=== PATIENT | female | born 2000 | race Hispanic/Latino ===

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

== ENCOUNTER 2018-01-18 13:23 | Emergency (ER) | payer OTHER, SELFPAY | END 2018-01-18 13:56 | disposition home or self-care (01) | LOC: ERS 13:23 | DX: S00.03XA Contusion of scalp, initial encounter (principal); W22.8XXA Striking against or struck by other objects, initial encounter | CPT/HCPCS: 99283 ==

== ENCOUNTER 2018-01-30 15:13 | Emergency (ER) | payer SELFPAY | END 2018-01-30 16:05 | disposition home or self-care (01) | LOC: ERS 15:13 | DX: B86 Scabies (principal) | CPT/HCPCS: 99282 ==

== ENCOUNTER 2019-09-27 17:20 | Emergency (ER) | payer OTHER, SELFPAY ==
[2019-09-28 16:51] LABS: SARS-CoV-2 MS2 Positive; SARS-CoV-2 N Gene Negative; SARS-CoV-2 S Gene Negative; SARS-CoV-2 orf1ab Negative
== END 2019-09-27 18:08 | disposition home or self-care (01) ==
LOC: ERS 17:20
DX: R05 Cough (principal); Z20.828 Contact with and (suspected) exposure to other viral communicable diseases
CPT/HCPCS: 87635; 99283; U0003

== ENCOUNTER 2019-12-26 18:22 | Day surgery (SDC) | payer OTHER, SELFPAY ==
[2019-12-26 19:01] VITALS: BMI 22.6
[2019-12-26] MEDS ORDERED: hydrALAZINE 20 MG/ML VIAL SLOW IVP PRN (19:58)
--- NOTE | 2019-12-26 20:01 | PDOC.BPN ---
- Brief Progress Note Patient seen at bedside. Workup ordered. See dictation
--- NOTE | 2019-12-26 20:38 | HP ---
TIME OF EVALUATION: 1950 hours. LOCATION: Labor and Delivery Triage B. HISTORY OF PRESENT ILLNESS: This is a patient who has not yet established care at any location and she is here for right upper quadrant discomfort, which she says is mild. In brief, the patient does not know her last menstrual period and again, she has not established care anywhere yet. She is a 19-year-old, G4, P3 with a history of three previous vaginal deliveries. She denies contractions, vaginal bleeding, or leakage of fluid. She does have good movement. REVIEW OF SYSTEMS: Complete review of systems was checked and is otherwise negative unless specified in the HPI. PAST MEDICAL HISTORY: Negative. PAST SURGICAL HISTORY: None. ALLERGIES: NONE. OB HISTORY: She has had vaginal deliveries x3. SOCIAL HISTORY: She denies alcohol, drugs, or smoking. PHYSICAL EXAMINATION: VITAL SIGNS: Stable and she is afebrile. GENERAL: Clinically, she is in no acute distress. ABDOMEN: Soft and nontender. There is no evidence of vaginal bleeding or gross leakage of fluid. On external monitor, heart tones are in the 140s to 150s and they are reactive. There are no contractions on the tocodynamometer. ASSESSMENT: This is a 19-year-old, G4, P3 with unsure last menstrual period, who is here for possible enrolment to care. She is not acute and her symptoms do not appear to be colicky, but nonetheless, I will order a right upper quadrant ultrasound. PLAN: 1. Right upper quadrant ultrasound. 2. OB complete ultrasound. 3. I have ordered all OB labs to be complete. Job ID: [id number]
[2019-12-26 20:44] LABS: #Eosinphils 0.1 thou/uL (0.0-0.7); #Lymphocytes 2.1 thou/uL (1.20-3.40); #Neutrophils 7.7 thou/uL (1.40-6.50); %Basophils 0.4 % (0.0-1.0); %Eosinophils 0.6 % (0.0-10.0); %Lymphocytes 19.2 % (21.0-51.0); %Monocytes 9.1 % (0.0-10.0); %Neutrophils 70.6 % (42.0-75.0); Hemoglobin 8.7 g/dL (12.0-16.0); Mean Corpuscular HGB CONC 31.9 g/dL (32.0-36.0); Mean Corpuscular Hemoglobin 22.9 pg (27.0-31.0); Mean Corpuscular Volume 71.9 fL (78.0-98.0); Mean Platelet Volume 9.6 fL (7.4-10.4); Platelet Count 264 thou/uL (130-400); RBC Distribution Width 15.4 % (11.5-14.5); White Blood Cell (WBC) Count 10.9 thou/uL (4.8-10.8)
[2019-12-26 20:44] LABS: Bacteria/HPF 3+ HPF (None Seen); Bilirubin Negative (Negative); Blood, Urine Trace (Negative); Clarity Turbid (Clear); Glucose, Urine (Dipstick) Normal (Negative); Ketone, Urine 40 mg/dL (Negative); Leukocyte 500 Leu/uL (Negative); Nitrite Negative (Negative); Protein, Urine (Dipstick) 10 mg/dL (Neg-Trace); Specific Gravity, Urine 1.013 (1.002-1.036); Squamous Epithelial 21-50 HPF (0-3); Urobilinogen Normal mg/dL (Less than 2); WBC/HPF Greater than 50 HPF (0-3)
[2019-12-26 21:04] LABS: ALT (SGPT) 8 U/L (8-55); AST (SGOT) 10 U/L (5-34); Albumin 3.2 g/dL (3.5-5.0); Alkaline Phosphatase 214 U/L (40-110); Anion Gap 11 mmol/L (10-20); BUN (Urea Nitrogen) 7 mg/dL (7.0-18.7); Bilirubin, Total 0.3 mg/dL (0.2-1.2); Calc. Creatinine Clearance 127 mL/min (70-130); Calcium 8.1 mg/dL (7.8-10.44); Carbon Dioxide 21 mmol/L (22-29); Chloride 107 mmol/L (98-107); Estimated GFR-MDRD Greater than 90; Globulin 3.6 g/dL (2.4-3.5); Glucose 74 mg/dL (70-105); Potassium 3.7 mmol/L (3.5-5.1); Protein, Total 6.8 g/dL (6.0-8.3); Sodium 135 mmol/L (136-145)
[2019-12-26 21:23] LABS: Syphilis Antibody Nonreactive (Nonreactive); Syphilis Antibody Index 0.05 S/CO (<1.00 Non-Reactive)
--- NOTE | 2019-12-26 21:32 | PDOC.BPN ---
- Brief Progress Note Encounter Date: 12/26/19 ([facility] follow up) Encounter Time: 21:30 Sono with EGA about 26-27 weeks. UA with UTI likely. I have placed macrobid order to her pharmacy on file. Labs ok. Needs outpatient care.
--- NOTE | 2019-12-26 21:50 | ULT ---
Exam: OB ultrasound HISTORY: Evaluate for size and dates. No care. Unsure LMP. Comparison none FINDINGS: Single intrauterine gestation Presentation: Vertex heart tones: 149 bpm Placenta: Posterior Limited evaluation of the lower uterine segment shadowing. Cervix cannot be adequately assessed Amniotic fluid index: 14.4 cm biometric: BPD 7.47 cm, 30 weeks 0 days Head circumference 27.40 cm, 29 weeks 6 days Abdominal circumference 24.89 cm, 29 weeks 1 day Femur length 5.44 cm, 28 weeks 5 days Average age by sonography is 29 weeks 3 days. Estimated weight is 1342 g +/- 199 g survey: The following structures are adequately demonstrated: Sagittal spine, four-chamber heart, bladder, th ree-vessel cord, nose and lips, cord insertion, cisterna magna, cerebellum. Remaining structures not adequately demonstrated. IMPRESSION: 1. Single intrauterine gestation with heart tones. Average age by sonography is 29 weeks 3 days . Estimated weight is 1342 g +/- 199 g 2. Suboptimal evaluation. 3. survey as above. Transcribed Date/Time: 12/26/2019 9:56 PM
--- NOTE | 2019-12-26 21:54 | ULT ---
EXAM: US Gallbladder RUQ CLINICAL HISTORY: Right upper quadrant pain. COMPARISON: None. FINDINGS: Pancreas: Obscured Liver:Hepatic parenchyma has a normal echotexture. No hepatic masses or intrahepatic biliary dilatati on. Right hepatic lobe: 16.1 cm Gallbladder: No sonographic evidence of cholelithiasis, gallbladder wall thickening or pericholecysti c fluid. Gallbladder is contracted, likely due to a nonfasting state. Bennett's sign:Negative Portal Vein: Patent. Appropriate directional flow Bile ducts: 0.32 cm common bile duct diameter Right kidney: Moderate hydronephrosis.. Right kidney measures 10.4 x 5.0 x 4.8 cm in length. IMPRESSION: 1. No sonographic evidence of cholelithiasis or cholecystitis. 2. Right-sided hydronephrosis, moderate.
[2019-12-26 22:22] LABS: HBSAg Index 0.19 S/CO (0-0.99); HIV (1/2) Antibody/Antigen Non-Reactive (NonReactive); HIV 1/2 INDEX 0.19 S/CO (<1.00); Hep B Surf Ag Non-Reactive S/CO (NonReactive); Hep C IgG Ab Non-Reactive (NonReactive); Hep C Index 0.08 S/CO (0-0.79)
== END 2019-12-26 21:41 | disposition home or self-care (01) ==
LOC: L&D/OP 18:22
PROVIDERS: ATTEND Obstetrics & Gynecology
DX: O99.89 Other specified diseases and conditions complicating pregnancy, childbirth and the puerperium (principal); R10.11 Right upper quadrant pain; N13.30 Unspecified hydronephrosis; Z3A.27 27 weeks gestation of pregnancy
CPT/HCPCS: 36415; 76705; 76805; 80053; 81003; 81015; 85025; 86780; 86803; 86900; 86901; 87340; 87389; 99285